=== PATIENT | female | born 1955 | race African-American/Black ===

== ENCOUNTER 2017-11-23 05:45 | Inpatient (IN) | payer MEDICARE, MEDICAID ==
--- NOTE | 2017-11-17 16:40 | HP ---
CHIEF COMPLAINT: Low back pain. HISTORY OF PRESENT ILLNESS: This is a 62-year-old female who has been to our office multiple times f or a spondylolisthesis in her lumbar spine. Surgery was planned previously; however, during her cal josué, it revealed that she had cardiovascular disease and underwent stenting and Plavix therapy. 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 Patient has decreased ability for standin g for periods of time and walking. She has severe low back pain which radiates down her glutes into her left greater than right leg. She will bend forward when she sits or leans on a shopping cart to get relief. Medications and epidural steroid injections have been tried; however, these have only gi freya her minimal relief. PAST MEDICAL HISTORY: Asthma, cholesterol, hypertension, diabetes, low back pain, mass of right mani st, thyroid. PAST SURGICAL HISTORY: Hysterectomy in 1995, removal of breast mass in 2004, left knee surgery in 17 08, colonoscopy in 2014. FAMILY HISTORY: Father is , diagnosed with diabetes, hypertension. Mother is , diag nosed with hypertension, stroke. Siblings are alive, diagnosed with diabetes, hypertension, heart di sease, stroke. SOCIAL HISTORY: She is a nonsmoker. MEDICATIONS: She is taking hydralazine HCL 25 mg twice a day, metformin HCL 850 mg tablet once a day , montelukast sodium 10 mg, gabapentin 300 mg 3 times a day, Humalog mix 75/25 insulin, 100 uni t mL suspension, spironolactone 25 mg tablet 1 tablet twice a day, Ventolin HFA, albuterol sulfate HF A (108 mcg) (90 mcg) base as needed. ALLERGIES: Aspirin 81. REVIEW OF SYSTEMS: A 10 point review of systems complete is otherwise negative unless stated in the above HPI. PHYSICAL EXAMINATION: HEENT: Head: Normocephalic, atraumatic. Hearing is intact. Moist mucous membranes. Trachea is mi dline. Eyes: Pupils are equal and reactive to light. Extraocular movements are intact. Sclerae is white, nonicteric. CARDIOVASCULAR: Patient has regular rate and rhythm, normal S1, S2 heart sounds. No murmurs, clicks or rubs. RESPIRATORY: The patient has bilateral symmetric chest rise. Normal work of breathing on room air. NEUROLOGIC: Gait and station are normal. Motor exam: There is normal strength in the iliopsoas, qu adriceps, hamstrings, anterior tibia, EHL, gastroc and toe flexors. Sensory exam: There is no derma tomal sensory loss in L1, L2, L3, L4, L5 or S1, some stocking distribution decrease in sensation in f eet and ankles. Reflex exam hypoactive throughout. No clonus. IMAGING: MRI L4-L5 slipped with foraminal and canal stenosis L4 pars fracture. ASSESSMENT: Spondylolisthesis, OCS and subluxation of stenosis of intervertebral foramen of the lumb ar region and subluxation stenosis of neural canal in the lumbar region. PLAN: Dr. Smith has offered a laminectomy L4-5 and L5-S1 with TLIF. Informed consent, we discus sed the indications, risks and benefits, alternatives, and expected results from surgery. The risks were discussed included, but are not limited to bleeding, infection, CSF leak, nerve damage, weakness , cauda equina injury, incontinence, arachnoiditis, paralysis, ventilator dependence, wheelchair depe ndence, loss of vision, cardiopulmonary complications of anesthesia or . Long-term complication s discussed, but are not included in spinal instability, future surgery. She understands the risks a nd is willing to proceed. She states that she will be off Plavix for at least 1 week.
[2017-11-22 13:23] VITALS: BMI 29.9
[2017-11-23] MEDS ORDERED: Sodium Chloride 0.9% 30 ML ONE (06:17)
[2017-11-23] MEDS ORDERED: Bupivacaine HCl 0.5%/Epinephrine 1:200,000/PF 30 ml Vial ONE (06:17)
[2017-11-23] MEDS ORDERED: Thrombin 5000 UNITS/5 ML VIAL ONE ×2 (06:17→13:00)
[2017-11-23] MEDS ORDERED: CEFAZOLIN/Water 2 GM/20 ML SYRINGE ONE (06:18)
[2017-11-23 06:36] LABS: INR-International Normal Ratio 0.9; PTT 26.6 SEC (22.9-36.1); Prothrombin Time 12.1 SEC (12.0-14.7)
[2017-11-23 06:42] LABS: Anion Gap 16 mmol/L (10-20); BUN (Urea Nitrogen) 13 mg/dL (9.8-20.1); Calc. Creatinine Clearance 69 mL/min (70-130); Calcium 9.2 mg/dL (7.8-10.44); Carbon Dioxide 27 mmol/L (23-31); Chloride 104 mmol/L (98-107); Estimated GFR-MDRD 77; Glucose 137 mg/dL (80-115); Potassium 3.7 mmol/L (3.5-5.1); Sodium 143 mmol/L (136-145)
[2017-11-23 06:45] LABS: Hemoglobin 13.6 g/dL (12.0-16.0); Mean Corpuscular HGB CONC 33.8 g/dL (32.0-36.0); Mean Corpuscular Hemoglobin 30.3 pg (27.0-31.0); Mean Corpuscular Volume 89.9 fL (78.0-98.0); Mean Platelet Volume 7.6 fL (7.4-10.4); Platelet Count 232 thou/uL (130-400); RBC Distribution Width 11.2 % (11.5-14.5); Red Blood Cell (RBC) Count 4.47 mill/uL (4.20-5.40); White Blood Cell (WBC) Count 8.5 thou/uL (4.8-10.8)
[2017-11-23] MEDS ORDERED: Albumin 5% 500 ML ONE (06:45)
[2017-11-23] MEDS ORDERED: Albuterol Sulfate HFA (OR ONLY) ONE (06:45)
[2017-11-23] MEDS ORDERED: Midazolam HCl 2 mg/2 ml Vial ONE (06:47)
[2017-11-23 06:59] LABS: Band 5 % (5-11); Eosinophils 2 % (0-10); Lymphocytes 51 % (21-51); MDiff Complete? YES; Monocytes 10 % (0-10); Neutrophil 32 % (42-75)
[2017-11-23] MEDS ORDERED: Fentanyl 100 MCG/2 ML VIAL ONE ×3 (07:03→12:46)
[2017-11-23] MEDS ORDERED: Nitroglycerin 50 MG/250 ML BOT 250 ML ONE (09:30)
[2017-11-23] MEDS ORDERED: Ondansetron HCl/PF 4 MG/2 ML Vial ONE ×2 (13:00→13:15)
[2017-11-23] MEDS ORDERED: Esmolol 100 MG/10 ML VIAL ONE (13:00)
[2017-11-23] MEDS ORDERED: Glycopyrrolate 0.2 MG/ML 5 ML SYRINGE ONE (13:00)
[2017-11-23] MEDS ORDERED: Lidocaine 2% PF 100 mg/5 ml Syringe ONE (13:00)
[2017-11-23] MEDS ORDERED: Metoclopramide HCl 10 MG/2 ML VIAL ONE (13:00)
[2017-11-23] MEDS ORDERED: PHENYLEPHRINE-NS 100 MCG/ML 10 ML SYRINGE ONE (13:00)
[2017-11-23] MEDS ORDERED: PROVENTIL INHALER 6.7 G (200 INHALATIONS) ONE (13:00)
[2017-11-23] MEDS ORDERED: Vecuronium 10 MG VIAL ONE (13:00)
[2017-11-23] MEDS ORDERED: Lidocaine 1% PF 5 ML VIAL ONE (13:00)
[2017-11-23] MEDS ORDERED: PROPOFOL 200 MG/20 ML VIAL ONE (13:00)
[2017-11-23] MEDS ORDERED: Nitroglycerin 50 MG/250 ML BOT ONE (13:00)
[2017-11-23] MEDS ORDERED: Acetaminophen/Codeine 30-300mg Tablet PO PRN (13:35)
[2017-11-23] MEDS ORDERED: diphenhydrAMINE 25 MG CAP PO PRN (13:35)
[2017-11-23] MEDS ORDERED: Promethazine HCl 12.5 MG SUPP PR PRN (13:35)
[2017-11-23] MEDS ORDERED: diphenhydrAMINE 50 MG/ML VIAL IVP PRN (13:35)
[2017-11-23] MEDS ORDERED: Promethazine HCl 25 MG/ML VIAL IM PRN ×2 (13:35→14:11)
[2017-11-23] MEDS ORDERED: Acetaminophen 650 MG Suppository PR PRN (13:35)
--- NOTE | 2017-11-23 13:35 | OP ---
DATE OF PROCEDURE: 11/23/2017 SURGEON: Lulu Smith M.D. TRIAGE RN: Kerrie Post PA-C. PREOPERATIVE INDICATION: Treat pain, prevent neurological deterioration. PREOPERATIVE DIAGNOSES: Unstable spondylolisthesis L4-5 and L5-S1 with spinal stenosis and neurogeni c claudication. POSTOPERATIVE DIAGNOSES: Unstable spondylolisthesis L4-5 and L5-S1 with spinal stenosis and neurogen ic claudication. OPERATIVE PROCEDURE: Removal of the entire posterior elements including abnormal facets at L4 and L5 , decompressive foraminotomy L4-5 and L5-S1, transforaminal lumbar interbody arthrodesis L4-5, L5-S1, placement of intervertebral biomechanical device L4-L5 and L5-S1, pedicle screw and jered instrumentat ion L4, L5 and S1, posterolateral arthrodesis at L4-5 and L5-S1. Local morselized autograft, morseli zed allograft. PREOPERATIVE MEDICATION: Ancef 2 grams IV. DRAIN NUMBER: One. DRAIN TYPE: 10 Tristanian Clemente. OPERATIVE DICTATION: The patient was brought to the operating room. General endotracheal anesthesia was induced. The patient was positioned prone on the Fabien frame with her chest and hips supporte d by the appropriate attachments for the Fabien frame. A lateral fluoro radiograph was used to plan our incision. The lumbar skin was sterilely prepped and draped and we opened with a 10 blade knife. We controlled bleeding with bipolar and monopolar cautery and used monopolar cautery to dissect thr ough her subcutaneous tissues to the thoracodorsal fascia. We incised the fascia in the midline and reflected the paraspinal muscles off the spinous process and lamina of L4, L5 and S1. A self-retaini ng retractor was placed. A lateral fluoro radiograph confirmed the levels upon which we were operati ng. We then carried our dissection over the facet joints at L3-4, L4-5 as well as L5-S1 to identify the L4 and L5 transverse processes and the sacral ala bilaterally. Using a Leksell and Maria rongeu r we removed the posterior elements of L4 and L5 in their entirety. These elements were completely s eparate from anterior vertebral body and pedicles and pars fractures were evident. With posterior el ements removed, the facet joints at L4-5 and L5-S1 now only had the superior articular processes. Fi brous tissue over the dura was removed carefully until we had decompressed the L4, L5 and S1 nerve ro ots through the lateral recesses and out their foramina bilaterally. We then turned our attention to arthrodesis. Through the foraminal opening around the L4 nerve root and the L5 nerve root on the left side, we acc essed the L4-5 and L5-S1 intervertebral spaces. We incised the interspace and removed disk contents using curettes and rongeurs. We prepared the endplates for grafting with curets. We used a bone emperatriz p to measure the height of each interspace and measured L4-5 to 9 mm and L5-S1 to 11 mm. The appropr iately sized PEEK intervertebral grafts were brought into the field. The bone from the posterior tate ment removal was carefully morcellized on the back table after soft tissue removed and added to demin eralized bone matrix to form our fusion substrate. The substrate was packed into the PEEK grafts and the grafts were advanced into the respective interspaces under radiographic guidance to the appropri ate depth. We turned our attention to pedicle screw instrumentation port. Using bony anatomic landmarks, palpation of the medial portion of the pedicles and lateral fluoro rad iograph as a guide, we chose entry points for pedicle screws at L4, L5 and S1 bilaterally. We used t he bone awl to create a trajectory to the pedicles and then used the tap to complete our trajectory p reparation. We then placed 6.5 mm pedicle screws at L4, L5 and S1 bilaterally. A 360 degree image s et was generated with our isocentric C-arm. This confirmed adequate positioning of our pedicle screw instrumentation. We then irrigated copiously with bacitracin irrigation. We decorticated the trans verse processes of L4 and L5 bilaterally and the sacral ala on either side. Over the decorticated sharron ne, we left demineralized bone matrix and morselized autograft as are posterolateral fusion substrate . We then brought rods into the field and placed in the screw heads. We tightened caps down over th e rods using [id number] mechanism ensured adequate tightness. Before final tightening, we compressed across the interspaces to keep the interbody grafts in place. We irrigated the center of the incision once again. We tunneled a drain inferiorly through a separate stab incision. We treat ed the wound with vancomycin powder. We closed the wound in anatomic layers. We applied a sterile d ressing. This was a clean case and no contamination.
[2017-11-23] MEDS ORDERED: HYDROmorphone 0.5 MG/0.5 ML SYRINGE ONE ×4 (13:42→14:35)
[2017-11-23] MEDS ORDERED: Ondansetron HCl/PF 4 MG/2 ML Vial IVP PRN (14:11)
[2017-11-23] MEDS ORDERED: Promethazine HCl 25 MG/ML VIAL SLOW IVP PRN (14:11)
[2017-11-23] MEDS ORDERED: Meperidine HCl/PF 25 MG/ML VIAL SLOW IVP PRN (14:11)
[2017-11-23] MEDS ORDERED: HYDROmorphone 2 MG/ML VIAL SLOW IVP PRN (14:11)
[2017-11-23] MEDS ORDERED: Morphine Sulfate 2 MG/ML SYRINGE SLOW IVP PRN (14:11)
[2017-11-23] MEDS: Sodium Chloride 0.9% 1,000 ML IV SCH (16:43)
[2017-11-23] MEDS: Acetaminophen/Codeine 30-300mg Tablet PO PRN ×2 (16:46→21:38)
[2017-11-23] MEDS: CEFAZOLIN/Water 2 GM/20 ML SYRINGE SLOW IVP SCH ×2 (16:50→21:39)
[2017-11-23] MEDS ORDERED: Mometasone/Formoterol 120 PUFF INHALER INH PRN (18:30)
[2017-11-23] MEDS ORDERED: Albuterol Sulfate 2.5 mg/3 ml Neb NEB PRN (18:31)
[2017-11-23] MEDS: Promethazine 25 MG TAB PO PRN (18:53)
[2017-11-23] MEDS: Montelukast Sodium 10 mg Tablet PO SCH (21:39)
[2017-11-23] MEDS: Pravastatin Sodium 40 MG TAB PO SCH (21:39)
[2017-11-23] MEDS: tiZANidine HCl 4 MG TAB PO PRN (22:07)
[2017-11-23] MEDS ORDERED: Dextrose 5% in Water 1,000 ML IV PRN (23:27)
[2017-11-23] MEDS ORDERED: Melatonin 3 MG TAB PO PRN (23:27)
[2017-11-23] MEDS ORDERED: Dextrose 50% Abboject 50 ML SYRINGE SLOW IVP PRN (23:27)
--- NOTE | 2017-11-23 23:30 | PDOC.PN ---
- Subjective Encounter Start Date: 11/23/17 Encounter Start Time: 23:28 Pt seen for management of medical comorbidities, including siabetes mellitus. Denies chest pain, shortness of breath, fevers or chills. No nausea or vomiting. - Objective MAR Reviewed: Yes Vital Signs & Weight: Vital Signs (12 hours) Temp Pulse Resp BP Pulse Ox 11/23/17 20:00 99.2 F 99 16 157/80 H 100 11/23/17 17:00 98.6 F 100 18 94 L 11/23/17 16:00 98.6 F 100 18 152/82 H Weight Weight 148 lb I&O: 11/22/17 11/23/17 11/24/17 06:59 06:59 06:59 Intake Total 200 Output Total 90 Balance 110 Result Diagrams: 11/23/17 06:22 11/23/17 06:22 Additional Labs: Accuchecks 11/23/17 12:32 POC Glucose 209 H Labs reviewed by me Phys Exam - Physical Examination Constitutional: NAD HEENT: moist MMs Neck: supple Respiratory: clear to auscultation bilateral Cardiovascular: RRR Gastrointestinal: soft s/p lumbar laminectomy Neurological: moves all 4 limbs Psychiatric: normal affect, A&O x 3 Dx/Plan (1) Diabetes mellitus Code(s): E11.9 - TYPE 2 DIABETES MELLITUS WITHOUT COMPLICATIONS Status: Chronic Comment: Start accuchecks, insulin sliding scale (2) HTN (hypertension) Code(s): I10 - ESSENTIAL (PRIMARY) HYPERTENSION Status: Chronic Comment: Resume home medications, monitor vital signs and titrate antihypertensives as needed. PRN IV hydralazine for blood pressure spikes. (3) Asthma Code(s): J45.909 - UNSPECIFIED ASTHMA, UNCOMPLICATED Status: Chronic Comment : start PRN Duonebs, asthma is stable (4) Dyslipidemia Code(s): E78.5 - HYPERLIPIDEMIA, UNSPECIFIED Status: Chronic Comment: continue statin - Plan PT/OT * . s/p L4-S1 laminectomy and fusion, DVT prophylaxis and pain management per neurosurgery team. Review of Systems - Review of Systems Constitutional: negative: fever, chills, sweats, weakness, malaise Cardiovascular: negative: chest pain, palpitations, orthopnea, paroxysmal nocturnal dyspnea, edema, light headedness - Medications/Allergies Allergies/Adverse Reactions: Allergies Allergy/AdvReac Type Severity Reaction Status Date / Time aspirin Allergy Severe HIVES, SOB Verified 11/22/17 13:12 iodine Allergy Verified 11/23/17 16:10 Medications: Current Medications Acetaminophen (Tylenol) 650 mg PO Q4H PRN PRN Reason: Headache/Fever or Pain Acetaminophen (Tylenol) 650 mg IN Q4H PRN PRN Reason: Headache/Fever or Pain Acetaminophen/Codeine Phosphate (Tylenol #3) 2 tab PO Q3H PRN PRN Reason: Moderate Pain (4-6) Last Admin: 11/23/17 21:38 Dose: 2 tab Acetaminophen/Codeine Phosphate (Tylenol #3) 1 tab PO Q3H PRN PRN Reason: Mild Pain (1-3) Albuterol Sulfate (Ventolin) 2.5 mg NEB Q6H PRN PRN Reason: SOB/WHEEZE Albuterol/Ipratropium (Duoneb) 3 ml NEB [id number] PRN PRN Reason: SOB &/or Wheezing Bisacodyl (Dulcolax) 10 mg IN Q12H PRN PRN Reason: Constipation Cefazolin Sodium (Ancef) 2 gm SLOW IVP Q8HR [facility] Stop: 11/25/17 22:01 Last Admin: 11/23/17 21:39 Dose: 2 gm Dextrose/Water (Dextrose 50%) 25 gm SLOW IVP PRN PRN PRN Reason: Hypoglycemia Diphenhydramine HCl (Benadryl) 25 mg IVP Q6H PRN PRN Reason: Itching Diphenhydramine HCl (Benadryl) 25 mg PO Q6H PRN PRN Reason: Itching Furosemide (Lasix) 80 mg PO DAILY [facility] Glucagon (Glucagon) 1 mg IM PRN PRN PRN Reason: Hypoglycemia Hydralazine HCl (Apresoline) 10 mg SLOW IVP Q6H PRN PRN Reason: SBP Greater Than 170 Sodium Chloride (Normal Saline 0.9%) 1,000 mls @ 75 mls/hr IV .[id number] [facility] Last Admin: 11/23/17 16:43 Dose: Not Given Dextrose/Water (D5w) 1,000 mls @ 0 mls/hr IV .Q0M PRN; As Directed PRN Reason: Hypoglycemia Insulin Human Isoph/Insulin Regular (Humulin 70/30) 46 units SC BID-WM [facility] Insulin Human Lispro (Humalog) 0 units SC .MILD SLIDING SCALE PRN PRN Reason: Mild Correctional Scale Losartan Potassium (Cozaar) 50 mg PO DAILY [facility] Magnesium Hydroxide (Milk Of Magnesium) 30 ml PO Q12H PRN PRN Reason: Constipation Melatonin (Melatonin) 3 mg PO HS PRN PRN Reason: Insomnia Metformin HCl (Glucophage) 850 mg PO BID-WM [facility] Metoprolol Tartrate (Lopressor) 25 mg PO DAILY [facility] Mometasone Furoate/Formoterol Fumar (Dulera 100 Mcg/5 Mcg Inhaler) 2 puff INH BID-RT PRN PRN Reason: ASTHMA Montelukast Sodium (Singulair) 10 mg PO QPM [facility] Last Admin: 11/23/17 21:39 Dose: 10 mg Morphine Sulfate (Morphine) 2 mg SLOW IVP Q1H PRN PRN Reason: Moderate Breakthrough Pain Morphine Sulfate (Morphine Sulfate) 4 mg SLOW IVP Q1H PRN PRN Reason: Severe Breakthrough Pain Multivitamins (Theragran) 1 tab PO DAILY [facility] Potassium Chloride (K-Dur) 20 meq PO QAM-WM [facility] Pravastatin Sodium (Pravachol) 40 mg PO HS [facility] Last Admin: 11/23/17 21:39 Dose: 40 mg Promethazine HCl (Phenergan) 12.5 mg PO Q4H PRN PRN Reason: Nausea/Vomiting Last Admin: 11/23/17 18:53 Dose: 12.5 mg Promethazine HCl (Phenergan) 12.5 mg IM Q4H PRN PRN Reason: Nausea/Vomiting Promethazine HCl (Phenergan Suppository) 12.5 mg IN Q4H PRN PRN Reason: Nausea/Vomiting Sodium Chloride (Flush - Normal Saline) 10 ml IVF PRN PRN PRN Reason: Saline Flush Tizanidine HCl (Zanaflex) 4 mg PO Q6H PRN PRN Reason: Muscle Spasm Last Admin: 11/23/17 22:07 Dose: 4 mg
[2017-11-24] MEDS: Sodium Chloride 0.9% 1,000 ML IV SCH ×2 (04:09→14:31)
[2017-11-24] MEDS: CEFAZOLIN/Water 2 GM/20 ML SYRINGE SLOW IVP SCH ×3 (05:10→20:46)
[2017-11-24] MEDS: metFORMIN 850 MG TAB PO SCH ×2 (08:52→17:47)
[2017-11-24] MEDS: Furosemide 80 MG TAB PO SCH (08:53)
[2017-11-24] MEDS: Losartan 25 MG TAB PO SCH (08:53)
[2017-11-24] MEDS: Potassium Chloride 20 MEQ TAB PO SCH (08:53)
[2017-11-24] MEDS: Multivit, Therapeutic 1 TAB PO SCH (08:53)
[2017-11-24] MEDS: Acetaminophen/Codeine 30-300mg Tablet PO PRN (08:54)
[2017-11-24] MEDS: Insulin NPH/Reg Insulin Hm 300 UNITS/3 ML VIAL SC SCH ×2 (08:55→17:47)
[2017-11-24] MEDS: tiZANidine HCl 4 MG TAB PO PRN (08:55)
[2017-11-24] MEDS ORDERED: Metoprolol Tartrate 25 MG TAB PO SCH (09:00)
[2017-11-24] MEDS: HumaLOG 300 UNITS/3 ML VIAL SC PRN (11:51)
[2017-11-24] MEDS: Acetaminophen 325 MG TAB PO PRN ×2 (11:52→20:07)
--- NOTE | 2017-11-24 12:59 | PDOC.PN ---
- Subjective Encounter Start Date: 11/24/17 Encounter Start Time: 13:30 Subjective: Patient with persistent back pain. No other complaints. - Objective MAR Reviewed: Yes Vital Signs & Weight: Vital Signs (12 hours) Temp Pulse Pulse Resp BP BP Pulse Ox 11/24/17 12:00 100 20 154/79 H 11/24/17 11:20 100.1 F H 100 18 182/73 H 95 11/24/17 09:06 108 H 131/80 11/24/17 08:00 99.3 F 105 H 16 100 11/24/17 07:15 99.3 F 105 H 16 131/75 100 11/24/17 03:41 99.4 F 106 H 16 130/75 100 Pulse Ox 11/24/17 12:00 11/24/17 11:20 11/24/17 09:06 94 L 11/24/17 08:00 11/24/17 07:15 11/24/17 03:41 Weight Weight 148 lb I&O: 11/23/17 11/24/17 11/25/17 06:59 06:59 06:59 Intake Total 1580 Output Total 240 Balance 1340 Result Diagrams: 11/23/17 06:22 11/23/17 06:22 Additional Labs: Accuchecks 11/24/17 11/24/17 11:25 05:41 POC Glucose 223 H 199 H Phys Exam - Physical Examination mild distress from pain HEENT: moist MMs Respiratory: no wheezing, no rales, no rhonchi Cardiovascular: RRR, no significant murmur Gastrointestinal: soft, positive bowel sounds Musculoskeletal: no edema Neurological: non-focal, moves all 4 limbs Psychiatric: normal affect, A&O x 3 Dx/Plan (1) Asthma Code(s): J45.909 - UNSPECIFIED ASTHMA, UNCOMPLICATED Status: Chronic Comment : start PRN Duonebs, asthma is stable (2) Diabetes mellitus Code(s): E11.9 - TYPE 2 DIABETES MELLITUS WITHOUT COMPLICATIONS Status: Chronic Comment: blood sugars running high, switch to consistent carb diet, accuchecks and ISS (3) Dyslipidemia Code(s): E78.5 - HYPERLIPIDEMIA, UNSPECIFIED Status: Chronic Comment: continue statin (4) HTN (hypertension) Code(s): I10 - ESSENTIAL (PRIMARY) HYPERTENSION Status: Chronic Comment: PRN IV hydralazine for blood pressure spikes. BP running high, also a bit tachycardic likely from pain. Will increase Metoprolol to 50mg daily. - Plan cont current plan of care, PT/OT * . - Discharge Day Encounter end time: 13:40
[2017-11-24] MEDS: Pravastatin Sodium 40 MG TAB PO SCH (20:07)
[2017-11-24] MEDS: Montelukast Sodium 10 mg Tablet PO SCH (20:08)
[2017-11-25] MEDS: Milk Of Magnesia 30 ML UDCUP PO PRN ×2 (01:12→23:30)
[2017-11-25] MEDS: Acetaminophen/Codeine 30-300mg Tablet PO PRN ×2 (03:20→09:20)
[2017-11-25] MEDS: Promethazine 25 MG TAB PO PRN ×2 (03:25→22:00)
[2017-11-25] MEDS: hydrALAZINE 20 MG/ML VIAL SLOW IVP PRN (03:31)
[2017-11-25] MEDS: Sodium Chloride 0.9% 1,000 ML IV SCH (06:08)
[2017-11-25] MEDS: CEFAZOLIN/Water 2 GM/20 ML SYRINGE SLOW IVP SCH ×3 (06:59→21:51)
[2017-11-25 07:35] LABS: Anion Gap 12 mmol/L (10-20); BUN (Urea Nitrogen) 14 mg/dL (9.8-20.1); Calc. Creatinine Clearance 68 mL/min (70-130); Calcium 8.1 mg/dL (7.8-10.44); Carbon Dioxide 28 mmol/L (23-31); Chloride 99 mmol/L (98-107); Estimated GFR-MDRD 76; Glucose 167 mg/dL (80-115); Potassium 3.4 mmol/L (3.5-5.1); Sodium 136 mmol/L (136-145)
--- NOTE | 2017-11-25 08:00 | PRG ---
DATE OF SERVICE: 11/25/2017 Ms. Cartwright is 2 days out from decompression fusion of the lumbar spine for unstable spondylolisthesis. In fact, the posterior elements of L4 and L5 were completely and abnormal. We are happy with our decompression. Her postoperative course has been notable for some pain requiring IV and ora l pain medication. She now has some constipation and abdominal distention. This is preventing her f rom doing her rehab. There seems to be good strength and sensation in lower extremities. Our goal this morning is to do bowel care. We will start with a suppository, if that does not work, we will use an enema. When she has had a bowel movement we will begin more aggressive physical thera py. We will keep an eye on her drain output. Once it drops below about 5 mL per hour, then it can be rem selwyn. Antibiotics will be continued until after the drain is out and then stopped. I still think tamra carrillo has an excellent chance to do well in inpatient rehabilitation once she starts moving. I will get a CBC to make sure her diffuse muscle cramping is not related to some hypokalemia.
[2017-11-25] MEDS: metFORMIN 850 MG TAB PO SCH ×2 (09:18→17:27)
[2017-11-25] MEDS: Insulin NPH/Reg Insulin Hm 300 UNITS/3 ML VIAL SC SCH ×2 (09:18→17:27)
[2017-11-25] MEDS: Multivit, Therapeutic 1 TAB PO SCH (09:19)
[2017-11-25] MEDS: Losartan 25 MG TAB PO SCH (09:19)
[2017-11-25] MEDS: Potassium Chloride 20 MEQ TAB PO SCH (09:19)
[2017-11-25] MEDS: Metoprolol Tartrate 25 MG TAB PO SCH (09:19)
[2017-11-25] MEDS: tiZANidine HCl 4 MG TAB PO PRN (09:21)
[2017-11-25] MEDS: Furosemide 80 MG TAB PO SCH (09:22)
--- NOTE | 2017-11-25 11:58 | PDOC.PN ---
- Subjective Encounter Start Date: 11/25/17 Encounter Start Time: 09:50 -: old records requested/rev Pt seen and examined, chart reviewed in its entirety, this is my first visit with this patient POD 2 Lumbar perez. pain controlled, no BM in 3 + days. some nausea thia AM. No F/c, no CP or SOB All systems reviewed and neg x as per HPI - Objective MAR Reviewed: Yes Vital Signs & Weight: Vital Signs (12 hours) Temp Pulse Resp BP BP Pulse Ox 11/25/17 04:23 99.4 F 100 19 177/78 H 96 11/25/17 03:31 106 H 177/79 H 11/25/17 00:12 99.2 F 106 H 21 H 159/71 H 92 L Weight Weight 148 lb I&O: 11/24/17 11/25/17 11/26/17 06:59 06:59 06:59 Intake Total 1580 1590 Output Total 240 70 Balance 1340 1520 Result Diagrams: 11/23/17 06:22 11/25/17 07:09 Additional Labs: Accuchecks 11/25/17 11/25/17 11/24/17 11:23 05:52 21:17 POC Glucose 205 H 169 H 124 H 11/24/17 11/23/17 15:31 23:26 POC Glucose 103 192 H Radiology Reviewed by me: Yes EKG Reviewed by me: Yes Phys Exam - Physical Examination Constitutional: NAD HEENT: PERRLA, moist MMs, sclera anicteric, oral pharynx no lesions Neck: no nodes, no JVD, supple, full ROM Respiratory: no wheezing, no rales, no rhonchi, clear to auscultation bilateral Cardiovascular: RRR, no significant murmur, no rub 2/6 HSM LUSB Gastrointestinal: soft, non-tender, no distention, positive bowel sounds Musculoskeletal: no edema, pulses present Neurological: non-focal, normal sensation, moves all 4 limbs Lymphatic: no nodes Psychiatric: normal affect, A&O x 3 Skin: no rash, normal turgor, cap refill <2 seconds Dx/Plan (1) Asthma Code(s): J45.909 - UNSPECIFIED ASTHMA, UNCOMPLICATED Status: Chronic Qualifiers: Asthma severity: mild Asthma persistence: intermittent Asthma complication type: uncomplicated Qualified Code(s): J45.20 - Mild intermittent asthma, uncomplicated Comment: start PRN Duonebs, asthma is stable (2) Diabetes mellitus Code(s): E11.9 - TYPE 2 DIABETES MELLITUS WITHOUT COMPLICATIONS Status: Chronic Qualifiers: Diabetes mellitus type: type 2 Diabetes mellitus care home insulin 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 BP running high, also a bit tachycardic likely from pain. Will increase Metoprolol to 50mg daily. - Plan cont current plan of care, continue antibiotics, PT/OT, out of bed/ambulate * . Suppository and miralax
[2017-11-25] MEDS ORDERED: Polyethylene Glycol 3350 17 GM Packet PO SCH (12:00)
[2017-11-25] MEDS: HumaLOG 300 UNITS/3 ML VIAL SC PRN (13:41)
[2017-11-25] MEDS: Bisacodyl 10 MG SUPP PR PRN (13:57)
[2017-11-25] MEDS: Fleet Enema 133 ML BOT FS PRN ×3 (16:35→23:32)
[2017-11-25] MEDS: Montelukast Sodium 10 mg Tablet PO SCH (21:50)
[2017-11-25] MEDS: Pravastatin Sodium 40 MG TAB PO SCH (21:50)
[2017-11-26] MEDS: Sodium Chloride 0.9% 1,000 ML IV SCH ×3 (05:49→23:44)
--- NOTE | 2017-11-26 06:19 | PRG ---
DATE OF SERVICE: 11/26/2017 Ms. Cartwright is 3 days out from decompression fusion lumbar spine. I am concerned that she is not be mo bilized. Yesterday she had complaints about abdominal distention and requested a bowel movement. Ronna carrillo is having one this morning as I entered the room. I see a fever recorded yesterday of 100.8 degree s Fahrenheit. This is likely from atelectasis and not moving around. We will check a urinalysis and a urine culture. Her neurological examination is stable. I am looking at the drain output and I see 3 recordings over 3 separate days, it seems like every 24 hours there is about 70-90 mL out recorded. This is less th an the 5 mL per hour threshold that we use to determine when it is time to remove a drain. I do not know why the drain is still in. Today's plan is to aggressively mobilize Ms. Cartwright, seek inpatient rehabilitation facility for her, r emove the drain and after the drain is out continue antibiotics for 1 more dose and then stop it. Ho pefully that can be a disposition plan by the end of the day today.
[2017-11-26] MEDS: Acetaminophen/Codeine 30-300mg Tablet PO PRN ×3 (06:42→22:18)
[2017-11-26] MEDS: Polyethylene Glycol 3350 17 GM Packet PO SCH (08:15)
[2017-11-26] MEDS: tiZANidine HCl 4 MG TAB PO PRN (08:16)
[2017-11-26] MEDS: Metoprolol Tartrate 25 MG TAB PO SCH (08:44)
[2017-11-26] MEDS: Losartan 25 MG TAB PO SCH (08:44)
[2017-11-26] MEDS: Furosemide 80 MG TAB PO SCH (08:44)
[2017-11-26] MEDS: Multivit, Therapeutic 1 TAB PO SCH (08:44)
[2017-11-26] MEDS: Insulin NPH/Reg Insulin Hm 300 UNITS/3 ML VIAL SC SCH ×2 (10:32→17:30)
[2017-11-26] MEDS: metFORMIN 850 MG TAB PO SCH ×2 (10:32→17:29)
[2017-11-26] MEDS: Potassium Chloride 20 MEQ TAB PO SCH (10:45)
[2017-11-26] MEDS: Promethazine 25 MG TAB PO PRN ×2 (15:14→22:17)
[2017-11-26] MEDS: Bisacodyl 10 MG SUPP PR PRN (15:15)
[2017-11-26] MEDS: Milk Of Magnesia 30 ML UDCUP PO PRN (15:17)
[2017-11-26 20:41] LABS: Bilirubin Negative (Negative); Blood, Urine Trace (Negative); Clarity CLOUDY (Clear); Glucose, Urine (Dipstick) Negative (Negative); Leukocyte Moderate (Negative); Nitrite Negative (Negative); Protein, Urine (Dipstick) Negative (Neg-Trace); Specific Gravity, Urine 1.013 (1.002-1.036); Urobilinogen 0.2 mg/dL (0.2-1.0); pH, Urine 6.5 (5.0-9.0)
[2017-11-26 20:43] LABS: Bacteria/HPF 1+ HPF (None Seen); Hyaline Casts/LPF 0-3 HYALINE CAST LPF (0-3 Hyaline); Pathc Cast-AUWi Flag 0.87 (0-2.49)
[2017-11-26 21:05] LABS: RBC/HPF 0-3 HPF (0-3)
[2017-11-26 21:06] LABS: Yeast-All Forms 1+ HPF (None Seen)
[2017-11-26] MEDS: Montelukast Sodium 10 mg Tablet PO SCH (22:17)
[2017-11-26] MEDS: Pravastatin Sodium 40 MG TAB PO SCH (22:19)
[2017-11-26] MEDS: hydrALAZINE 20 MG/ML VIAL SLOW IVP PRN (23:14)
[2017-11-27] MEDS: tiZANidine HCl 4 MG TAB PO PRN (05:37)
[2017-11-27] MEDS: hydrALAZINE 20 MG/ML VIAL SLOW IVP PRN (05:38)
[2017-11-27] MEDS: Acetaminophen/Codeine 30-300mg Tablet PO PRN ×3 (05:38→14:08)
[2017-11-27] MEDS: Promethazine 25 MG TAB PO PRN (05:38)
[2017-11-27] MEDS: Milk Of Magnesia 30 ML UDCUP PO PRN (06:19)
[2017-11-27] MEDS: Bisacodyl 10 MG SUPP PR PRN ×2 (06:27→23:31)
[2017-11-27] MEDS: Insulin NPH/Reg Insulin Hm 300 UNITS/3 ML VIAL SC SCH ×2 (10:34→17:22)
[2017-11-27] MEDS: metFORMIN 850 MG TAB PO SCH ×2 (10:37→17:34)
[2017-11-27] MEDS: Potassium Chloride 20 MEQ TAB PO SCH (10:37)
[2017-11-27] MEDS: Losartan 25 MG TAB PO SCH (10:38)
[2017-11-27] MEDS: Furosemide 80 MG TAB PO SCH (10:38)
[2017-11-27] MEDS: Multivit, Therapeutic 1 TAB PO SCH (10:38)
[2017-11-27] MEDS: Metoprolol Tartrate 25 MG TAB PO SCH (10:38)
[2017-11-27] MEDS: Polyethylene Glycol 3350 17 GM Packet PO SCH ×2 (10:40→14:11)
[2017-11-27] MEDS: Sodium Chloride 0.9% 1,000 ML IV SCH ×2 (10:41→21:13)
--- NOTE | 2017-11-27 11:37 | PRG ---
DATE OF SERVICE: 11/27/2017 SUBJECTIVE: Ms. Cartwright is 4 days out from decompression and fusion of lumbar spine. Drain remains in place this morning, for some reason. Family complains that she had significant pain overnight and w as difficult for her to sleep. However, she did get out of bed yesterday and walked to the door with the assistance of our physical therapist. On examination, Ms. Cartwright's incision is still well approximated, although the Steri-Strips seem to chang ve fallen off from some wound drainage issue. She has good motor function in the lower extremities. The patient has a urinalysis with 1+ bacteria, 1+ yeast. She has some dysuria and frequency. Our plan today is to make sure the patient is on a regular bowel regimen that we watch closely for an y yeast or urinary tract infection. In fact, we will add Levaquin to her medication today to cover u rinary tract infection and because of the issue with Steri-Strips and the lumbar wound. This will be a prophylaxis for both of those issues. We will have Ms. Cartwright work with physical therapy and getting out of the room with assistance and maryann gomes in the hallways. Hopefully, she continues to make solid improvement over the weekend and would be a candidate for rehabilitation in the near future.
[2017-11-27] MEDS: HumaLOG 300 UNITS/3 ML VIAL SC PRN ×2 (13:51→21:31)
--- NOTE | 2017-11-27 15:28 | PDOC.PN ---
- Subjective Encounter Start Date: 11/26/17 Encounter Start Time: 10:20 Pt had two good BMs this morning, back hurts, not wanting to move. No F/C, no N/V/D/C, no CP or SOB. all systems reviewed and neg for all x as above - Objective MAR Reviewed: Yes Vital Signs & Weight: Vital Signs (12 hours) Temp Pulse Resp BP BP Pulse Ox 11/27/17 12:42 98.6 F 94 20 154/82 H 96 11/27/17 08:00 98.6 F 94 20 11/27/17 07:40 100.0 F H 105 H 20 152/75 H 96 11/27/17 06:20 168/71 H 11/27/17 05:38 98 194/70 H 11/27/17 04:10 99.3 F 98 16 183/69 H 96 Weight Weight 148 lb I&O: 11/26/17 11/27/17 11/28/17 06:59 06:59 06:59 Intake Total 1060 1240 Output Total 760 70 Balance 300 1170 Result Diagrams: 11/23/17 06:22 11/25/17 07:09 Additional Labs: Accuchecks 11/27/17 11/27/17 11/26/17 12:47 06:13 21:10 POC Glucose 228 H 168 H 124 H 11/26/17 11/26/17 16:23 15:20 POC Glucose 84 56 L* Phys Exam - Physical Examination Constitutional: NAD HEENT: PERRLA, moist MMs, sclera anicteric, oral pharynx no lesions Neck: no nodes, no JVD, supple, full ROM Respiratory: no wheezing, no rales, no rhonchi, clear to auscultation bilateral Cardiovascular: RRR, no significant murmur, no rub Gastrointestinal: soft, non-tender, no distention, positive bowel sounds Musculoskeletal: no edema, pulses present Neurological: non-focal, normal sensation, moves all 4 limbs Lymphatic: no nodes Psychiatric: normal affect, A&O x 3 Skin: no rash, normal turgor, cap refill <2 seconds Dx/Plan (1) Asthma Code(s): J45.909 - UNSPECIFIED ASTHMA, UNCOMPLICATED Status: Chronic Qualifiers: Asthma severity: mild Asthma persistence: intermittent Asthma complication type: uncomplicated Qualified Code(s): J45.20 - Mild intermittent asthma, uncomplicated Comment: PRN Wiliam, asthma is stable (2) Diabetes mellitus Code(s): E11.9 - TYPE 2 DIABETES MELLITUS WITHOUT COMPLICATIONS Status: Chronic Qualifiers: Diabetes mellitus type: type 2 Diabetes mellitus terminal carman insulin use: without detention use Diabetes mellitus complication status: without complication Qualified Code(s): E11.9 - Type 2 diabetes mellitus without complications Comment: blood sugars running high, switch to consistent carb diet, accuchecks and ISS (3) Dyslipidemia Code(s): E78.5 - HYPERLIPIDEMIA, UNSPECIFIED Status: Chronic Comment: continue statin (4) HTN (hypertension) Code(s): I10 - ESSENTIAL (PRIMARY) HYPERTENSION Status: Chronic Qualifiers: Hypertension type: essential hypertension Qualified Code(s): I10 - Essential (primary) hypertension Comment: PRN IV hydralazine for blood pressure spikes. BP running high, also a bit tachycardic likely from pain. Will increase Metoprolol to 50mg daily. - Plan * .
--- NOTE | 2017-11-27 15:43 | PDOC.PN ---
- Subjective Encounter Start Date: 11/27/17 Encounter Start Time: 09:10 Pt moving more, eating well, no new complaints. accepted at [facility], but cannot take until Wednesday No F/C, no N/V/D/C, no CP or SOB. all systems reviewed and neg for all x as above - Objective MAR Reviewed: Yes Vital Signs & Weight: Vital Signs (12 hours) Temp Pulse Resp BP BP Pulse Ox 11/27/17 12:42 98.6 F 94 20 154/82 H 96 11/27/17 08:00 98.6 F 94 20 11/27/17 07:40 100.0 F H 105 H 20 152/75 H 96 11/27/17 06:20 168/71 H 11/27/17 05:38 98 194/70 H 11/27/17 04:10 99.3 F 98 16 183/69 H 96 Weight Weight 148 lb I&O: 11/26/17 11/27/17 11/28/17 06:59 06:59 06:59 Intake Total 1060 1240 Output Total 760 70 Balance 300 1170 Result Diagrams: 11/23/17 06:22 11/25/17 07:09 Additional Labs: Accuchecks 11/27/17 11/27/17 11/26/17 12:47 06:13 21:10 POC Glucose 228 H 168 H 124 H 11/26/17 11/26/17 16:23 15:20 POC Glucose 84 56 L* Phys Exam - Physical Examination Constitutional: NAD HEENT: PERRLA, moist MMs, sclera anicteric, oral pharynx no lesions Neck: no nodes, no JVD, supple, full ROM Respiratory: no wheezing, no rales, no rhonchi, clear to auscultation bilateral Cardiovascular: RRR, no significant murmur, no rub Gastrointestinal: soft, non-tender, no distention, positive bowel sounds Musculoskeletal: no edema, pulses present Neurological: non-focal, normal sensation, moves all 4 limbs Lymphatic: no nodes Psychiatric: normal affect, A&O x 3 Skin: no rash, normal turgor, cap refill <2 seconds Dx/Plan (1) Asthma Code(s): J45.909 - UNSPECIFIED ASTHMA, UNCOMPLICATED Status: Chronic Qualifiers: Asthma severity: mild Asthma persistence: intermittent Asthma complication type: uncomplicated Qualified Code(s): J45.20 - Mild intermittent asthma, uncomplicated Comment: PRN Wiliam, asthma is stable (2) Diabetes mellitus Code(s): E11.9 - TYPE 2 DIABETES MELLITUS WITHOUT COMPLICATIONS Status: Chronic Qualifiers: Diabetes mellitus type: type 2 Diabetes mellitus equipment operator intermodal yard insulin use: without equipment operator intermodal yard use Diabetes mellitus complication status: without complication Qualified Code(s): E11.9 - Type 2 diabetes mellitus without complications Comment: blood sugars running high, switch to consistent carb diet, accuchecks and ISS (3) Dyslipidemia Code(s): E78.5 - HYPERLIPIDEMIA, UNSPECIFIED Status: Chronic Comment: continue statin (4) HTN (hypertension) Code(s): I10 - ESSENTIAL (PRIMARY) HYPERTENSION Status: Chronic Qualifiers: Hypertension type: essential hypertension Qualified Code(s): I10 - Essential (primary) hypertension Comment: PRN IV hydralazine for blood pressure spikes. BP running high, also a bit tachycardic likely from pain. Increased Metoprolol to 50mg daily. - Plan cont current plan of care, PT/OT, oncology social worker, respiratory therapy, out of bed/ambulate * .
[2017-11-27] MEDS: Montelukast Sodium 10 mg Tablet PO SCH (20:59)
[2017-11-27] MEDS: Pravastatin Sodium 40 MG TAB PO SCH (21:00)
[2017-11-28] MEDS: Acetaminophen/Codeine 30-300mg Tablet PO PRN ×3 (00:26→21:06)
[2017-11-28] MEDS ORDERED: FLUTICASONE INH PRN (08:48)
[2017-11-28] MEDS ORDERED: VILANTEROL INH PRN (08:48)
[2017-11-28] MEDS: Polyethylene Glycol 3350 17 GM Packet PO SCH (09:34)
[2017-11-28] MEDS: Metoprolol Tartrate 25 MG TAB PO SCH (09:35)
[2017-11-28] MEDS: metFORMIN 850 MG TAB PO SCH (09:35)
[2017-11-28] MEDS: Losartan 25 MG TAB PO SCH (09:35)
[2017-11-28] MEDS: Furosemide 80 MG TAB PO SCH (09:36)
[2017-11-28] MEDS: Insulin NPH/Reg Insulin Hm 300 UNITS/3 ML VIAL SC SCH ×2 (09:36→16:58)
[2017-11-28] MEDS: Potassium Chloride 20 MEQ TAB PO SCH (09:36)
--- NOTE | 2017-11-28 09:38 | PRG ---
DATE OF SERVICE: 11/28/2017 Ms. Cartwright is 5 days out from decompression and fusion of lumbar spine. She is making slow progress. Her bowels are feeling better. Abdominal distention is not quite as severe as it was. She was able to get to a bedside commode and the commode in the restroom yesterday. She is able to walk to the [employer] station in the hallway and back to her bed. This was all done with assistance, but it shows s ome improvement. Ms. Cartwright's drain was removed. T-max overnight was 100.6 degrees Fahrenheit. Other vitals are stabl e. Her neurological examination is stable as well with good motor and sensory function in lower extr emities. Ms. Cartwright is making slow, but steady progress with therapy, concerned about the integrity of her woun d and the bacteriuria. Therefore, we are covering her with Levaquin for the next 9 days. If she christophe es progress with physical therapy today, she may be an excellent candidate for inpatient rehabilitati on starting tomorrow. Arrangements can be made for the transfer if a bed is available.
[2017-11-28] MEDS: Multivit, Therapeutic 1 TAB PO SCH (09:42)
--- NOTE | 2017-11-28 10:45 | RAD ---
CHEST 1 VIEW: Date: 11/28/17 HISTORY: 62-year-old female with history of fever, postoperative, possible pneumonia. FINDINGS: There is rotation to the left. Mild linear stranding in the left lower lobe, possibly some mild subse gmental atelectasis. Heart size is within normal limits. No confluent pneumonia. IMPRESSION: Very mild linear and parenchymal changes in the left base, possibly some mild subsegmental atelectasi s. No evidence of pneumonia or other acute process. POS: [facility]
--- NOTE | 2017-11-28 10:58 | ULT ---
BILATERAL LOWER EXTREMITY VENOUS DUPLEX EXAM: Date: 11/28/17 Deep veins of both lower extremities evaluated with color Doppler, spectral analysis, and compression . INDICATION: Lower extremity pain and edema. Decreased activity. Recent lumbar surgery. FINDINGS: Deep veins of both lower extremities show normal blood flow and compression. No evidence of deep veno us thrombosis. IMPRESSION: No evidence of lower extremity deep venous thrombosis identified. POS: [facility]
[2017-11-28 11:27] LABS: #Eosinphils 0.1 thou/uL (0.0-0.7); #Lymphocytes 1.2 thou/uL (1.20-3.40); #Monocytes 0.8 thou/uL (0.11-0.59); #Neutrophils 7.5 thou/uL (1.40-6.50); %Basophils 0.1 % (0.0-1.0); %Eosinophils 1.3 % (0.0-10.0); %Lymphocytes 12.2 % (21.0-51.0); %Neutrophils 78.5 % (42.0-75.0); Hemoglobin 8.8 g/dL (12.0-16.0); Mean Corpuscular HGB CONC 33.2 g/dL (32.0-36.0); Mean Corpuscular Hemoglobin 30.3 pg (27.0-31.0); Mean Corpuscular Volume 91.3 fL (78.0-98.0); Mean Platelet Volume 7.1 fL (7.4-10.4); Platelet Count 310 thou/uL (130-400); RBC Distribution Width 11.3 % (11.5-14.5); Red Blood Cell (RBC) Count 2.89 mill/uL (4.20-5.40); White Blood Cell (WBC) Count 9.6 thou/uL (4.8-10.8)
[2017-11-28 11:45] LABS: Anion Gap 16 mmol/L (10-20); BUN (Urea Nitrogen) 27 mg/dL (9.8-20.1); Calc. Creatinine Clearance 49 mL/min (70-130); Calcium 8.9 mg/dL (7.8-10.44); Carbon Dioxide 28 mmol/L (23-31); Chloride 101 mmol/L (98-107); Estimated GFR-MDRD 52; Glucose 170 mg/dL (80-115); Potassium 3.8 mmol/L (3.5-5.1); Sodium 141 mmol/L (136-145)
[2017-11-28] MEDS: Sodium Chloride 0.9% 1,000 ML IV SCH (12:31)
[2017-11-28] MEDS ORDERED: ALPRAZolam 0.25 MG TAB PO SCH (12:45)
--- NOTE | 2017-11-28 13:41 | PDOC.PN ---
- Subjective Encounter Start Date: 11/28/17 Encounter Start Time: 13:40 Subjective: feels depressed over the illness and crying -: denies any CP/SOB.still weak and has some back pain - Objective MAR Reviewed: Yes Vital Signs & Weight: Vital Signs (12 hours) Temp Pulse Resp BP Pulse Ox 11/28/17 11:00 99 F 90 18 133/73 96 11/28/17 08:00 99 F 96 16 11/28/17 07:56 99 F 96 16 187/82 H 95 11/28/17 04:00 99 F 104 H 15 112/65 98 Weight Weight 148 lb I&O: 11/27/17 11/28/17 11/29/17 06:59 06:59 06:59 Intake Total 1240 980 Output Total 70 Balance 1170 980 Result Diagrams: 11/28/17 11:06 11/28/17 11:06 Additional Labs: Accuchecks 11/28/17 11/28/17 11/27/17 11:26 05:41 20:42 POC Glucose 153 H 169 H 171 H 11/27/17 16:43 POC Glucose 144 H Microbiology 11/26/17 20:37 Urine voided Urine Culture - Preliminary Radiology Reviewed by me: Yes (CXR-atelectasis) Phys Exam - Physical Examination Constitutional: NAD HEENT: PERRLA, moist MMs, sclera anicteric, oral pharynx no lesions Neck: no nodes, no JVD, supple, full ROM Respiratory: no wheezing, no rales, no rhonchi, clear to auscultation bilateral Cardiovascular: RRR, no significant murmur, no rub Gastrointestinal: soft, non-tender, no distention, positive bowel sounds Musculoskeletal: no edema, pulses present Neurological: non-focal, normal sensation, moves all 4 limbs Psychiatric: normal affect, A&O x 3 Skin: no rash Dx/Plan (1) Postoperative fever Code(s): R50.82 - POSTPROCEDURAL FEVER Status: Acute Comment: Likley atelectasis.no PNA on CXR (2) Postoperative anemia Code(s): D64.9 - ANEMIA, UNSPECIFIED Status: Acute (3) TYE (acute kidney injury) Code(s): N17.9 - ACUTE KIDNEY FAILURE, UNSPECIFIED Status: Acute (4) Asthma Code(s): J45.909 - UNSPECIFIED ASTHMA, UNCOMPLICATED Status: Chronic Qualifiers: Asthma severity: mild Asthma persistence: intermittent Asthma complication type: uncomplicated Qualified Code(s): J45.20 - Mild intermittent asthma, uncomplicated Comment: PRN Wiliam, asthma is stable (5) Diabetes mellitus Code(s): E11.9 - TYPE 2 DIABETES MELLITUS WITHOUT COMPLICATIONS Status: Chronic Qualifiers: Diabetes mellitus type: type 2 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 BP running high, also a bit tachycardic likely from pain. Increased Metoprolol to 50mg daily. - Plan continue antibiotics, out of bed/ambulate, DVT proph w/SCDs obtain Blood Cx. Follow urin ecx results. monitor WBC -: cont empiric ABx. leonelley due to atelectais.add IS -: no DVT on Doppler.cont prophylaxis -: restart select home meds as below. -: Hold metformin d/t TYE.repeat labs in am.ISS & accuchecks * . Review of Systems - Review of Systems Constitutional: fever, weakness, malaise. negative: chills, sweats, other ENT: negative: Ear Pain, Ear Discharge, Nose Pain, Nose Discharge, Nose Congestion, Mouth Pain, Mouth Swelling, Throat Pain, Throat Swelling, Other Respiratory: negative: Cough, Dry, Shortness of Breath, Hemoptysis, SOB with Excertion, Pleuritic Pain, Sputum, Wheezing Cardiovascular: negative: chest pain, palpitations, orthopnea, paroxysmal nocturnal dyspnea, edema, light headedness, other Gastrointestinal: negative: Nausea, Vomiting, Abdominal Pain, Diarrhea, Constipation, Melena, Hematochezia, Other Genitourinary: negative: Dysuria, Frequency, Incontinence, Hematuria, Retention , Other Musculoskeletal: negative: Neck Pain, Shoulder Pain, Arm Pain, Back Pain, Hand Pain, Leg Pain, Foot Pain, Other Neurological: negative: Weakness, Numbness, Incoordination, Change in Speech, Confusion, Seizures, Other - Medications/Allergies Allergies/Adverse Reactions: Allergies Allergy/AdvReac Type Severity Reaction Status Date / Time aspirin Allergy Severe HIVES, SOB Verified 11/22/17 13:12 iodine Allergy Verified 11/23/17 16:10 Medications: Current Medications Acetaminophen (Tylenol) 650 mg PO Q4H PRN PRN Reason: Headache/Fever or Pain Last Admin: 11/24/17 20:07 Dose: 650 mg Acetaminophen (Tylenol) 650 mg NV Q4H PRN PRN Reason: Headache/Fever or Pain Acetaminophen/Codeine Phosphate (Tylenol #3) 2 tab PO Q3H PRN PRN Reason: Moderate Pain (4-6) Last Admin: 11/28/17 09:36 Dose: 2 tab Acetaminophen/Codeine Phosphate (Tylenol #3) 1 tab PO Q3H PRN PRN Reason: Mild Pain (1-3) Albuterol Sulfate (Ventolin) 2.5 mg NEB Q6H PRN PRN Reason: SOB/WHEEZE Albuterol/Ipratropium (Duoneb) 3 ml NEB Q6H PRN PRN Reason: SOB &/or Wheezing Alprazolam (Xanax) 0.25 mg PO BIDPRN PRN PRN Reason: Anxiety Alprazolam (Xanax) 0.25 mg PO NOW [facility] Stop: 11/28/17 14:00 Atorvastatin Calcium (Lipitor) 10 mg PO [facility] Bisacodyl (Dulcolax) 10 mg NV Q12H PRN PRN Reason: Constipation Last Admin: 11/27/17 23:31 Dose: 10 mg Dextrose/Water (Dextrose 50%) 25 gm SLOW IVP PRN PRN PRN Reason: Hypoglycemia Diphenhydramine HCl (Benadryl) 25 mg IVP Q6H PRN PRN Reason: Itching Diphenhydramine HCl (Benadryl) 25 mg PO Q6H PRN PRN Reason: Itching Last Admin: 11/26/17 06:46 Dose: 25 mg Furosemide (Lasix) 80 mg PO DAILY [facility] Last Admin: 11/28/17 09:36 Dose: 80 mg Glucagon (Glucagon) 1 mg IM PRN PRN PRN Reason: Hypoglycemia Hydralazine HCl (Apresoline) 10 mg SLOW IVP Q6H PRN PRN Reason: SBP Greater Than 170 Last Admin: 11/27/17 05:38 Dose: 10 mg Sodium Chloride (Normal Saline 0.9%) 1,000 mls @ 75 mls/hr IV .[id number] [facility] Last Admin: 11/28/17 12:31 Dose: Not Given Dextrose/Water (D5w) 1,000 mls @ 0 mls/hr IV .Q0M PRN; As Directed PRN Reason: Hypoglycemia Insulin Human Isoph/Insulin Regular (Humulin 70/30) 46 units SC BID-WM [facility] Last Admin: 11/28/17 09:36 Dose: 46 unit Insulin Human Lispro (Humalog) 0 units SC .MILD SLIDING SCALE PRN PRN Reason: Mild Correctional Scale Last Admin: 11/27/17 21:31 Dose: 2 unit Levofloxacin (Levaquin) 500 mg PO 0600 [facility] Stop: 12/03/17 06:01 Last Admin: 11/28/17 06:22 Dose: 500 mg Losartan Potassium (Cozaar) 50 mg PO DAILY [facility] Last Admin: 11/28/17 09:35 Dose: 50 mg Magnesium Hydroxide (Milk Of Magnesium) 30 ml PO Q12H PRN PRN Reason: Constipation Last Admin: 11/27/17 06:19 Dose: 30 ml Melatonin (Melatonin) 3 mg PO HS PRN PRN Reason: Insomnia Last Admin: 11/27/17 21:34 Dose: 3 mg Metoprolol Tartrate (Lopressor) 50 mg PO DAILY [facility] Last Admin: 11/28/17 09:35 Dose: 50 mg Mometasone Furoate/Formoterol Fumar (Dulera 100 Mcg/5 Mcg Inhaler) 2 puff INH BID-RT PRN PRN Reason: ASTHMA Montelukast Sodium (Singulair) 10 mg PO HS [facility] Morphine Sulfate (Morphine) 2 mg SLOW IVP Q1H PRN PRN Reason: Moderate Breakthrough Pain Last Admin: 11/26/17 09:48 Dose: 2 mg Morphine Sulfate (Morphine Sulfate) 4 mg SLOW IVP Q1H PRN PRN Reason: Severe Breakthrough Pain Last Admin: 11/27/17 02:23 Dose: 4 mg Multivitamins/Iron (Centrum Kids Complete/Iron) 1 tab PO DAILY [facility] Polyethylene Glycol (Miralax) 17 gm PO DAILY [facility] Last Admin: 11/28/17 09:34 Dose: 17 gm Potassium Chloride (K-Dur) 20 meq PO QAM-WM [facility] Last Admin: 11/28/17 09:36 Dose: 20 meq Pravastatin Sodium (Pravachol) 40 mg PO HS [facility] Last Admin: 11/27/17 21:00 Dose: 40 mg Promethazine HCl (Phenergan) 12.5 mg PO Q4H PRN PRN Reason: Nausea/Vomiting Last Admin: 11/27/17 05:38 Dose: 12.5 mg Promethazine HCl (Phenergan) 12.5 mg IM Q4H PRN PRN Reason: Nausea/Vomiting Last Admin: 11/25/17 13:43 Dose: 12.5 mg Promethazine HCl (Phenergan Suppository) 12.5 mg NV Q4H PRN PRN Reason: Nausea/Vomiting Sodium Biphosphate/Sodium Phosphate (Fleet Enema) 133 ml FS PRN PRN PRN Reason: CONSTIPATION Last Admin: 11/25/17 23:32 Dose: 133 ml Sodium Chloride (Flush - Normal Saline) 10 ml IVF PRN PRN PRN Reason: Saline Flush Tizanidine HCl (Zanaflex) 4 mg PO Q6H PRN PRN Reason: Muscle Spasm Last Admin: 11/27/17 05:37 Dose: 4 mg
[2017-11-28] MEDS: Promethazine 25 MG TAB PO PRN (16:40)
[2017-11-28] MEDS: Montelukast Sodium 10 mg Tablet PO SCH (21:05)
[2017-11-28] MEDS: Pravastatin Sodium 40 MG TAB PO SCH (21:05)
[2017-11-28] MEDS: ALPRAZolam 0.25 MG TAB PO PRN (21:06)
[2017-11-28] MEDS: Atorvastatin Calcium 10 MG TAB PO SCH (21:06)
[2017-11-29] MEDS: tiZANidine HCl 4 MG TAB PO PRN ×2 (02:19→17:23)
[2017-11-29] MEDS: Acetaminophen/Codeine 30-300mg Tablet PO PRN ×3 (02:19→22:27)
[2017-11-29] MEDS: Sodium Chloride 0.9% 1,000 ML IV SCH ×2 (03:09→17:16)
[2017-11-29 05:33] LABS: Hemoglobin 7.8 g/dL (12.0-16.0)
[2017-11-29 05:43] LABS: Anion Gap 15 mmol/L (10-20); BUN (Urea Nitrogen) 28 mg/dL (9.8-20.1); Calc. Creatinine Clearance 55 mL/min (70-130); Calcium 8.7 mg/dL (7.8-10.44); Carbon Dioxide 29 mmol/L (23-31); Chloride 104 mmol/L (98-107); Estimated GFR-MDRD 60; Glucose 105 mg/dL (80-115); Potassium 3.5 mmol/L (3.5-5.1); Sodium 144 mmol/L (136-145)
--- NOTE | 2017-11-29 07:48 | PRG ---
DATE OF SERVICE: 11/29/2017 Ms. Cartwright is a 6 days out from decompression fusion lumbar spine. She is making very slow recovery f rom surgery, but she is getting better each day. The day before yesterday she walked to the [facility] and back. Yesterday she walked twice around the hallways. This is a significant improvement. If she is making this type of progress she may be a good candidate for inpatient rehabilitation and transferred to a such a facility today would be reasonable.
[2017-11-29] MEDS: Polyethylene Glycol 3350 17 GM Packet PO SCH (08:15)
[2017-11-29] MEDS: Losartan 25 MG TAB PO SCH (08:17)
[2017-11-29] MEDS: Potassium Chloride 20 MEQ TAB PO SCH (08:18)
[2017-11-29] MEDS: Metoprolol Tartrate 25 MG TAB PO SCH ×2 (08:18→20:49)
[2017-11-29] MEDS: Multivitamins CHEW w/Iron Tablet PO SCH (08:19)
[2017-11-29] MEDS: Furosemide 80 MG TAB PO SCH (08:19)
[2017-11-29] MEDS: ALPRAZolam 0.25 MG TAB PO PRN (08:20)
[2017-11-29] MEDS: Promethazine 25 MG TAB PO PRN ×2 (08:20→17:24)
[2017-11-29] MEDS: Insulin NPH/Reg Insulin Hm 300 UNITS/3 ML VIAL SC SCH ×2 (08:25→17:25)
[2017-11-29] MEDS: Nitrofurantoin Monohyd/M-Cryst 100 MG CAP PO SCH ×2 (09:04→20:48)
[2017-11-29] MEDS: Bisacodyl 10 MG SUPP PR PRN (09:07)
[2017-11-29] MEDS: HumaLOG 300 UNITS/3 ML VIAL SC PRN (11:28)
--- NOTE | 2017-11-29 12:53 | PDOC.PN ---
- Subjective Encounter Start Date: 11/29/17 Encounter Start Time: 12:51 Subjective: feels better but still weak. denies any CP/SOB - Objective MAR Reviewed: Yes Vital Signs & Weight: Vital Signs (12 hours) Temp Pulse Pulse Resp BP BP BP 11/29/17 12:21 98.7 F 89 16 100/64 11/29/17 11:00 98.3 F 89 16 86/55 L 11/29/17 08:50 98.6 F 95 16 11/29/17 07:35 98.6 F 95 16 138/78 Pulse Ox 11/29/17 12:21 93 L 11/29/17 11:00 99 11/29/17 08:50 98 11/29/17 07:35 95 Weight Weight 148 lb I&O: 11/28/17 11/29/17 11/30/17 06:59 06:59 06:59 Intake Total 980 1180 0 Balance 980 1180 0 Result Diagrams: 11/29/17 05:02 11/29/17 05:02 Additional Labs: Accuchecks 11/29/17 11/28/17 11/28/17 11:04 20:37 16:17 POC Glucose 203 H 107 106 Microbiology 11/28/17 11:12 Venous blood - Right Hand Blood Culture - Preliminary Specimen has been received and culture in progress. No Growth to date. 11/28/17 11:06 Venous blood - Right Arm Blood Culture - Preliminary Specimen has been received and culture in progress. No Growth to date. 11/26/17 20:37 Urine voided Urine Culture - Preliminary Pseudomonas aeruginosa Escherichia coli Yeast species Laboratory Tests 11/23/17 11/25/17 11/28/17 06:22 07:09 11:06 Creatinine 0.90 0.91 1.26 H 11/29/17 05:02 Creatinine 1.12 H labs reviewed Phys Exam - Physical Examination Constitutional: NAD HEENT: PERRLA, moist MMs, sclera anicteric, oral pharynx no lesions Neck: no nodes, no JVD, supple, full ROM Respiratory: no wheezing, no rales, no rhonchi, clear to auscultation bilateral Cardiovascular: RRR, no significant murmur, no rub Gastrointestinal: soft, non-tender, no distention, positive bowel sounds Musculoskeletal: no edema, pulses present Neurological: non-focal, normal sensation, moves all 4 limbs Psychiatric: normal affect, A&O x 3 Skin: no rash Dx/Plan (1) UTI (urinary tract infection) Status: Acute (2) TYE (acute kidney injury) Code(s): N17.9 - ACUTE KIDNEY FAILURE, UNSPECIFIED Status: Acute (3) Postoperative anemia Code(s): D64.9 - ANEMIA, UNSPECIFIED Status: Acute (4) Postoperative fever Code(s): R50.82 - POSTPROCEDURAL FEVER Status: Resolved Comment: Madi atelectasis.no PNA on CXR (5) Asthma Code(s): J45.909 - UNSPECIFIED ASTHMA, UNCOMPLICATED Status: Chronic Qualifiers: Asthma severity: mild Asthma persistence: intermittent Asthma complication type: uncomplicated Qualified Code(s): J45.20 - Mild intermittent asthma, uncomplicated Comment: MICHAELN Wiliam, asthma is stable (6) Diabetes mellitus Code(s): E11.9 - TYPE 2 DIABETES MELLITUS WITHOUT COMPLICATIONS Status: Chronic Qualifiers: Diabetes mellitus type: type 2 Diabetes mellitus fci insulin use: without fci use Diabetes mellitus complication status: without complication Qualified Code(s): E11.9 - Type 2 diabetes mellitus without complications Comment: blood sugars running high, switch to consistent carb diet, accuchecks and ISS (7) Dyslipidemia Code(s): E78.5 - HYPERLIPIDEMIA, UNSPECIFIED Status: Chronic Comment: continue statin (8) HTN (hypertension) Code(s): I10 - ESSENTIAL (PRIMARY) HYPERTENSION Status: Chronic Qualifiers: Hypertension type: essential hypertension Qualified Code(s): I10 - Essential (primary) hypertension - Plan incentive spirometry, out of bed/ambulate, DVT proph w/SCDs Add Nitrofurantoin given pseudomonas in urine whic is sensitive to it. -: change metoprolol from 50 daily to 25 po bid given low BP -: give 1 unit PRBC today as H/h dropped further w baseline around 13. -: symptomatic w weakness and low BP -: OK to DC post transfusion w OP CBC and BMP in 2 days. Renal Fx better * . Review of Systems - Review of Systems Constitutional: weakness, malaise. negative: fever, chills, sweats, other Eyes: negative: Pain, Vision Change, Conjunctivae Inflammation, Eyelid Inflammation, Redness, Other ENT: negative: Ear Pain, Ear Discharge, Nose Pain, Nose Discharge, Nose Congestion, Mouth Pain, Mouth Swelling, Throat Pain, Throat Swelling, Other Respiratory: negative: Cough, Dry, Shortness of Breath, Hemoptysis, SOB with Excertion, Pleuritic Pain, Sputum, Wheezing Cardiovascular: negative: chest pain, palpitations, orthopnea, paroxysmal nocturnal dyspnea, edema, light headedness, other Gastrointestinal: negative: Nausea, Vomiting, Abdominal Pain, Diarrhea, Constipation, Melena, Hematochezia, Other Genitourinary: negative: Dysuria, Frequency, Incontinence, Hematuria, Retention , Other Musculoskeletal: Back Pain. negative: Neck Pain, Shoulder Pain, Arm Pain, Hand Pain, Leg Pain, Foot Pain, Other Skin: negative: Rash, Lesions, Ron, Bruising, Other Neurological: negative: Weakness, Numbness, Incoordination, Change in Speech, Confusion, Seizures, Other - Medications/Allergies Allergies/Adverse Reactions: Allergies Allergy/AdvReac Type Severity Reaction Status Date / Time aspirin Allergy Severe HIVES, SOB Verified 11/22/17 13:12 iodine Allergy Verified 11/23/17 16:10 Medications: Current Medications Acetaminophen (Tylenol) 650 mg PO Q4H PRN PRN Reason: Headache/Fever or Pain Last Admin: 11/24/17 20:07 Dose: 650 mg Acetaminophen (Tylenol) 650 mg [place] Q4H PRN PRN Reason: Headache/Fever or Pain Acetaminophen/Codeine Phosphate (Tylenol #3) 2 tab PO Q3H PRN PRN Reason: Moderate Pain (4-6) Last Admin: 11/29/17 08:21 Dose: 2 tab Acetaminophen/Codeine Phosphate (Tylenol #3) 1 tab PO Q3H PRN PRN Reason: Mild Pain (1-3) Albuterol Sulfate (Ventolin) 2.5 mg NEB Q6H PRN PRN Reason: SOB/WHEEZE Albuterol/Ipratropium (Duoneb) 3 ml NEB Q6H PRN PRN Reason: SOB &/or Wheezing Alprazolam (Xanax) 0.25 mg PO BIDPRN PRN PRN Reason: Anxiety Last Admin: 11/29/17 08:20 Dose: 0.25 mg Atorvastatin Calcium (Lipitor) 10 mg PO HS ADDIE Last Admin: 11/28/17 21:06 Dose: 10 mg Bisacodyl (Dulcolax) 10 mg [place] Q12H PRN PRN Reason: Constipation Last Admin: 11/29/17 09:07 Dose: 10 mg Dextrose/Water (Dextrose 50%) 25 gm SLOW IVP PRN PRN PRN Reason: Hypoglycemia Diphenhydramine HCl (Benadryl) 25 mg IVP Q6H PRN PRN Reason: Itching Diphenhydramine HCl (Benadryl) 25 mg PO Q6H PRN PRN Reason: Itching Last Admin: 11/26/17 06:46 Dose: 25 mg Furosemide (Lasix) 80 mg PO DAILY [facility] Last Admin: 11/29/17 08:19 Dose: 80 mg Glucagon (Glucagon) 1 mg IM PRN PRN PRN Reason: Hypoglycemia Hydralazine HCl (Apresoline) 10 mg SLOW IVP Q6H PRN PRN Reason: SBP Greater Than 170 Last Admin: 11/27/17 05:38 Dose: 10 mg Sodium Chloride (Normal Saline 0.9%) 1,000 mls @ 75 mls/hr IV .[id number] [facility] Last Admin: 11/29/17 03:09 Dose: Not Given Dextrose/Water (D5w) 1,000 mls @ 0 mls/hr IV .Q0M PRN; As Directed PRN Reason: Hypoglycemia Insulin Human Isoph/Insulin Regular (Humulin 70/30) 46 units SC BID-[facility] Last Admin: 11/29/17 08:25 Dose: 46 unit Insulin Human Lispro (Humalog) 0 units SC .MILD SLIDING SCALE PRN PRN Reason: Mild Correctional Scale Last Admin: 11/29/17 11:28 Dose: 2 unit Levofloxacin (Levaquin) 500 mg PO 0600 [facility] Stop: 12/03/17 06:01 Last Admin: 11/29/17 06:16 Dose: 500 mg Losartan Potassium (Cozaar) 50 mg PO DAILY [facility] Last Admin: 11/29/17 08:17 Dose: 50 mg Magnesium Hydroxide (Milk Of Magnesium) 30 ml PO Q12H PRN PRN Reason: Constipation Last Admin: 11/27/17 06:19 Dose: 30 ml Melatonin (Melatonin) 3 mg PO HS PRN PRN Reason: Insomnia Last Admin: 11/27/17 21:34 Dose: 3 mg Metoprolol Tartrate (Lopressor) 50 mg PO DAILY [facility] Last Admin: 11/29/17 08:18 Dose: 50 mg Mometasone Furoate/Formoterol Fumar (Dulera 100 Mcg/5 Mcg Inhaler) 2 puff INH BID-RT PRN PRN Reason: ASTHMA Montelukast Sodium (Singulair) 10 mg PO [facility] Last Admin: 11/28/17 21:05 Dose: 10 mg Morphine Sulfate (Morphine) 2 mg SLOW IVP Q1H PRN PRN Reason: Moderate Breakthrough Pain Last Admin: 11/26/17 09:48 Dose: 2 mg Morphine Sulfate (Morphine Sulfate) 4 mg SLOW IVP Q1H PRN PRN Reason: Severe Breakthrough Pain Last Admin: 11/27/17 02:23 Dose: 4 mg Multivitamins/Iron (Centrum Kids Complete/Iron) 1 tab PO DAILY [facility] Last Admin: 11/29/17 08:19 Dose: 1 tab Nitrofurantoin Macrocrystals (Macrobid) 100 mg PO BID [facility] Stop: 12/06/17 09:01 Last Admin: 11/29/17 09:04 Dose: 100 mg Polyethylene Glycol (Miralax) 17 gm PO DAILY [facility] Last Admin: 11/29/17 08:15 Dose: 17 gm Potassium Chloride (K-Dur) 20 meq PO QA-[facility] Last Admin: 11/29/17 08:18 Dose: 20 meq Pravastatin Sodium (Pravachol) 40 mg PO [facility] Last Admin: 11/28/17 21:05 Dose: 40 mg Promethazine HCl (Phenergan) 12.5 mg PO Q4H PRN PRN Reason: Nausea/Vomiting Last Admin: 11/29/17 08:20 Dose: 12.5 mg Promethazine HCl (Phenergan) 12.5 mg IM Q4H PRN PRN Reason: Nausea/Vomiting Last Admin: 11/25/17 13:43 Dose: 12.5 mg Promethazine HCl (Phenergan Suppository) 12.5 mg [place] Q4H PRN PRN Reason: Nausea/Vomiting Sodium Biphosphate/Sodium Phosphate (Fleet Enema) 133 ml FS PRN PRN PRN Reason: CONSTIPATION Last Admin: 11/25/17 23:32 Dose: 133 ml Sodium Chloride (Flush - Normal Saline) 10 ml IVF PRN PRN PRN Reason: Saline Flush Tizanidine HCl (Zanaflex) 4 mg PO Q6H PRN PRN Reason: Muscle Spasm Last Admin: 11/29/17 02:19 Dose: 4 mg
[2017-11-29] MEDS: Montelukast Sodium 10 mg Tablet PO SCH (20:48)
[2017-11-29] MEDS: Atorvastatin Calcium 10 MG TAB PO SCH (20:48)
[2017-11-29] MEDS: Pravastatin Sodium 40 MG TAB PO SCH (20:48)
[2017-11-30] MEDS: Sodium Chloride 0.9% 1,000 ML IV SCH (03:19)
[2017-11-30] MEDS: Acetaminophen/Codeine 30-300mg Tablet PO PRN ×2 (06:35→11:29)
--- NOTE | 2017-11-30 07:04 | PRG ---
DATE OF SERVICE: 11/30/2017 NEUROSURGERY NOTE SUBJECTIVE: Ms. Cartwright is 7 days out from decompression and fusion of lumbar spine. She made slow, b ut steady progress. Yesterday, she was walking in the hallway with her brace on. She states she fee ls a bit better. The back is still sore. A bed, evidently, is ready for an inpatient rehabilitation in [place]. We will make a transfer to that hospital to the inpatient rehabilitation unit. When she is out of that unit, we will see her in [place] clinic. I would like her to continue on Leva joy for a total of 10 days. This is for a Pseudomonas and Escherichia coli urinary tract infection.
[2017-11-30] MEDS ORDERED: CEFAZOLIN/Water 2 GM/20 ML SYRINGE SLOW IVP SCH (08:45)
[2017-11-30 09:02] VITALS: TEMP 98.5
[2017-11-30] MEDS: Furosemide 80 MG TAB PO SCH (09:20)
[2017-11-30] MEDS: Polyethylene Glycol 3350 17 GM Packet PO SCH (09:20)
[2017-11-30] MEDS: Losartan 25 MG TAB PO SCH (09:20)
[2017-11-30] MEDS: Potassium Chloride 20 MEQ TAB PO SCH (09:20)
[2017-11-30] MEDS: Multivitamins CHEW w/Iron Tablet PO SCH (09:20)
[2017-11-30] MEDS: Nitrofurantoin Monohyd/M-Cryst 100 MG CAP PO SCH (09:20)
[2017-11-30] MEDS: Metoprolol Tartrate 25 MG TAB PO SCH (09:21)
[2017-11-30] MEDS: Insulin NPH/Reg Insulin Hm 300 UNITS/3 ML VIAL SC SCH (10:49)
[2017-11-30 10:56] VITALS: BP 150/80
[2017-11-30] MEDS: tiZANidine HCl 4 MG TAB PO PRN (11:29)
--- NOTE | 2017-11-30 14:10 | PDOC.PN ---
- Subjective Encounter Start Date: 11/30/17 Encounter Start Time: 14:09 Subjective: feels much better except for back pain -: no new complaints -: Dced by primary service to Rehab - Objective MAR Reviewed: Yes Vital Signs & Weight: Vital Signs (12 hours) Temp Pulse Resp BP BP Pulse Ox 11/30/17 10:30 98.5 F 100 18 150/80 H 96 11/30/17 08:00 98.5 F 96 16 11/30/17 07:50 98.5 F 96 16 138/80 95 11/30/17 04:00 98.3 F 89 18 113/66 100 Weight Weight 148 lb I&O: 11/29/17 11/30/17 12/01/17 06:59 06:59 06:59 Intake Total 1180 1190 Balance 1180 1190 Result Diagrams: 11/29/17 05:02 11/29/17 05:02 Additional Labs: Accuchecks 11/30/17 11/30/17 11/30/17 10:24 06:07 05:27 POC Glucose 130 H 71 52 L* 11/29/17 11/29/17 20:28 15:53 POC Glucose 78 110 Microbiology 11/26/17 20:37 Urine voided Urine Culture - Final Pseudomonas aeruginosa Escherichia coli Yeast species 11/28/17 11:12 Venous blood - Right Hand Blood Culture - Preliminary NO GROWTH AT 48 HOURS 11/28/17 11:06 Venous blood - Right Arm Blood Culture - Preliminary NO GROWTH AT 48 HOURS labs reviewed Phys Exam - Physical Examination Constitutional: NAD HEENT: PERRLA, moist MMs, sclera anicteric, oral pharynx no lesions Neck: no nodes, no JVD, supple, full ROM Respiratory: no wheezing, no rales, no rhonchi, clear to auscultation bilateral Cardiovascular: RRR, no significant murmur, no rub Gastrointestinal: soft, non-tender, no distention, positive bowel sounds Musculoskeletal: no edema, pulses present Neurological: non-focal, normal sensation, moves all 4 limbs Psychiatric: normal affect, A&O x 3 Skin: no rash Dx/Plan (1) UTI (urinary tract infection) Status: Acute (2) TYE (acute kidney injury) Code(s): N17.9 - ACUTE KIDNEY FAILURE, UNSPECIFIED Status: Acute (3) Postoperative anemia Code(s): D64.9 - ANEMIA, UNSPECIFIED Status: Acute Comment: s/p 1 unit PRBC yesterday (4) Postoperative fever Code(s): R50.82 - POSTPROCEDURAL FEVER Status: Resolved Comment: Rinaley atelectasis.no PNA on CXR (5) Asthma Code(s): J45.909 - UNSPECIFIED ASTHMA, UNCOMPLICATED Status: Chronic Qualifiers: Asthma severity: mild Asthma persistence: intermittent Asthma complication type: uncomplicated Qualified Code(s): J45.20 - Mild intermittent asthma, uncomplicated Comment: PRN Wiliam, asthma is stable (6) Diabetes mellitus Code(s): E11.9 - TYPE 2 DIABETES MELLITUS WITHOUT COMPLICATIONS Status: Chronic Qualifiers: Diabetes mellitus type: type 2 Diabetes mellitus meterman insulin use: without chcf use Diabetes mellitus complication status: without complication Qualified Code(s): E11.9 - Type 2 diabetes mellitus without complications Comment: blood sugars running high, switch to consistent carb diet, accuchecks and ISS (7) Dyslipidemia Code(s): E78.5 - HYPERLIPIDEMIA, UNSPECIFIED Status: Chronic Comment: continue statin (8) HTN (hypertension) Code(s): I10 - ESSENTIAL (PRIMARY) HYPERTENSION Status: Chronic Qualifiers: Hypertension type: essential hypertension Qualified Code(s): I10 - Essential (primary) hypertension - Plan PT/OT, DVT proph w/SCDs OK to Dc from IM stand point -: cont nitrofurantoin for pseudomonas UTI.resistant to levaquin -: rehab per primary team. -: DC med rec done * . Review of Systems - Review of Systems Constitutional: negative: fever, chills, sweats, weakness, malaise, other ENT: negative: Ear Pain, Ear Discharge, Nose Pain, Nose Discharge, Nose Congestion, Mouth Pain, Mouth Swelling, Throat Pain, Throat Swelling, Other Respiratory: negative: Cough, Dry, Shortness of Breath, Hemoptysis, SOB with Excertion, Pleuritic Pain, Sputum, Wheezing Cardiovascular: negative: chest pain, palpitations, orthopnea, paroxysmal nocturnal dyspnea, edema, light headedness, other Gastrointestinal: negative: Nausea, Vomiting, Abdominal Pain, Diarrhea, Constipation, Melena, Hematochezia, Other Genitourinary: negative: Dysuria, Frequency, Incontinence, Hematuria, Retention , Other Musculoskeletal: Back Pain. negative: Neck Pain, Shoulder Pain, Arm Pain, Hand Pain, Leg Pain, Foot Pain, Other Skin: negative: Rash, Lesions, Ron, Bruising, Other Neurological: negative: Weakness, Numbness, Incoordination, Change in Speech, Confusion, Seizures, Other - Medications/Allergies Allergies/Adverse Reactions: Allergies Allergy/AdvReac Type Severity Reaction Status Date / Time aspirin Allergy Severe HIVES, SOB Verified 11/22/17 13:12 iodine Allergy Verified 11/23/17 16:10
== END 2017-11-30 11:55 | DRG 460 ==
LOC: SURG A 05:45 → SURG B 16:09
PROVIDERS: ADMIT Neurological Surgery; ATTEND Neurological Surgery
PROC: 0SG00AJ Fusion of Lumbar Vertebral Joint with Interbody Fusion Device, Posterior Approach, Anterior Column, Open Approach (ICD-10-PCS; principal; 2017-11-23)
PROC: 0SG30AJ Fusion of Lumbosacral Joint with Interbody Fusion Device, Posterior Approach, Anterior Column, Open Approach (ICD-10-PCS; 2017-11-23)
PROC: 01NB0ZZ Release Lumbar Nerve, Open Approach (ICD-10-PCS; 2017-11-23)
PROC: 01NR0ZZ Release Sacral Nerve, Open Approach (ICD-10-PCS; 2017-11-23)
PROC: 30233N1 Transfusion of Nonautologous Red Blood Cells into Peripheral Vein, Percutaneous Approach (ICD-10-PCS; 2017-11-29)
DX: M48.062 Spinal stenosis, lumbar region with neurogenic claudication (principal); N39.0 Urinary tract infection, site not specified; N17.9 Acute kidney failure, unspecified; J98.11 Atelectasis; M43.16 Spondylolisthesis, lumbar region; I10 Essential (primary) hypertension; E11.9 Type 2 diabetes mellitus without complications; E78.5 Hyperlipidemia, unspecified; K59.00 Constipation, unspecified; J45.20 Mild intermittent asthma, uncomplicated; D64.9 Anemia, unspecified; B96.20 Unspecified Escherichia coli [E. coli] as the cause of diseases classified elsewhere; B96.5 Pseudomonas (aeruginosa) (mallei) (pseudomallei) as the cause of diseases classified elsewhere; Z88.6 Allergy status to analgesic agent; Z79.4 Long term (current) use of insulin; Z79.899 Other long term (current) drug therapy
CPT/HCPCS: 36415; 36416; 36430; 71045; 76001; 80048; 81003; 81015; 85014; 85018; 85025; 85610; 85730; 86850; 86900; 86901; 87040; 87077; 87086; 87186; 93005; 93010; 93970; 96374; A4216; C1713; C1768; G8978-GP-CM; G8979-GP-CI; G8987-GO-CM; G8988-GO-CJ; J0131; J0360; J0670; J1170; J2001; J2250; J2270; J2405; J2550; J2704; J2765; J3010; J3370; J3490; P9016; P9045